=== PATIENT | female | born 1950 ===

== ENCOUNTER → 2018-07-30 08:19 | Outpatient (CLI) | payer SELFPAY ==
[2018-09-26 22:01] LABS: Prothrombin Time Fingerstick 12.9 SEC (11.9-14.4)
[2018-10-06 07:25] LABS: Prothrombin Time Fingerstick 15.9 SEC (11.9-14.4)
[2018-10-06 07:56] LABS: Prothrombin Time Fingerstick 12.8 SEC (11.9-14.4)
[2018-10-06 07:56] LABS: Prothrombin Time Fingerstick 25.8 SEC (11.9-14.4)
[2019-01-25 15:51] LABS: ACT Activated Clotting Time 164 sec (74-137)
[2019-01-25 15:51] LABS: Base Excess 2 mmol/L (-2 to +2); Bicarbonate 26.7 mmol/L (22-26); Blood Gas Specimen Type ALINE; O2 Delivery Device Nasal Can; PO2 28 mmHG (75-100); SITE R Femoral; SO2 50 % (95-99); Time Given 1507; Total Carbon Dioxide 28 mmol/L; pCO2 45.3 mmHg (35-45); pH 7.38 (7.35-7.45)
[2019-01-25 15:51] LABS: ACT Activated Clotting Time 98 sec (74-137)
[2019-01-25 15:51] LABS: Base Excess 5 mmol/L (-2 to +2); Bicarbonate 25.5 mmol/L (22-26); Blood Gas Specimen Type ART; PO2 148 mmHG (75-100); SO2 100 % (95-99); Total Carbon Dioxide 26 mmol/L; pCO2 22.3 mmHg (35-45); pH 7.67 (7.35-7.45)
[2019-01-26 15:26] LABS: Allen Test POS; Base Excess -1 mmol/L (-2 to +2); Bicarbonate 23.8 mmol/L (22-26); Blood Gas Specimen Type ART; O2 Delivery Device Room Air; PO2 24 mmHG (75-100); SITE R Radial; SO2 42 % (95-99); Time Given 1510; Total Carbon Dioxide 25 mmol/L; pH 7.38 (7.35-7.45)
[2019-01-26 15:26] LABS: ACT Activated Clotting Time 114 sec (74-137)
[2019-04-08 15:13] LABS: Prothrombin Time Fingerstick 13.5 SEC (11.9-14.4)
[2019-04-16 15:29] LABS: Prothrombin Time Fingerstick 46.5 SEC (11.9-14.4)
== END ==
DX: Z00.00 Encounter for general adult medical examination without abnormal findings (principal)
CPT/HCPCS: 36416; 82803; 85347; 85610